=== PATIENT | male | born 1955 | race Hispanic/Latino ===

== ENCOUNTER 2017-05-18 21:09 | Inpatient (IN) | payer MEDICARE ==
[~2017-05-18] VITALS: Ht 157.5 cm; Wt 79.9 kg
[2017-05-18] MEDS ORDERED: PANTOPRAZOL 40MG/SOD CHL 0.9% 250 ML IV STA (21:15)
[2017-05-18] MEDS ORDERED: SODIUM CHLORIDE 0.9% 500ML 500 ML IV STA (21:15)
[2017-05-18] MEDS ORDERED: PANTOPRAZOLE 40 MG 10ML VIAL IV NR (21:30)
[2017-05-18 21:51] LABS: BASOPHILS % 0.5 % (0.0-1.0); BILIRUBIN,URINE NEGATIVE (NEGATIVE); EOSINOPHILS # (AUTO) 0.1 (0.0-0.4); EOSINOPHILS % 1.6 % (0.0-6.0); HEMATOCRIT 29.8 % (38.2-49.6); KETONES,URINE NEGATIVE (NEGATIVE); LEUKOCYTE ESTERASE ,URINE TRACE (NEGATIVE); LYMPHOCYTES # (AUTO) 2.5 (1.0-3.2); LYMPHOCYTES % 44.1 % (18.0-39.1); MEAN CORPUSCULAR HEMOGLOBIN 30.3 pg (28-32); MEAN CORPUSCULAR HGB CONC 33.6 g/dL (31-35); MEAN CORPUSCULAR VOLUME 90.3 fL (81-99); MONOCYTES # (AUTO) 0.3 (0.2-0.8); MONOCYTES % 5.9 % (4.4-11.3); NEUTROPHILS # (AUTO) 2.7 (2.1-6.9); NEUTROPHILS % 47.2 % (38.7-80.0); NITRITE,URINE NEGATIVE (NEGATIVE); PLATELET COUNT 95 x10e3/uL (140-360); PROTEIN,URINE DIPSTICK NEGATIVE (NEGATIVE); RED CELL DISTRIBUTION WIDTH 15.4 % (11.7-14.4); URINE UROBILINOGEN 0.2 mg/dL (0.2 - 1)
[2017-05-18 21:53] LABS: CLARITY,URINE CLEAR (CLEAR); COLOR,URINE YELLOW (YELLOW)
[2017-05-18 21:59] LABS: PARTIAL THROMBOPLASTIN TIME 26.9 seconds (23.8-35.5)
[2017-05-18 22:04] LABS: INR 1.27; PROTHROMBIN TIME 14.9 seconds (11.9-14.5)
[2017-05-18 22:14] LABS: CREATINE KINASE 85 IU/L (30-200)
[2017-05-18 22:18] LABS: ALBUMIN 3.2 g/dL (3.5-5.0)
[2017-05-18 22:27] LABS: ALANINE AMINOTRANSFERASE 84 IU/L (0-55); ALBUMIN/GLOBULIN RATIO 0.9 (0.8-2.0); ALKALINE PHOSPHATASE 50 IU/L (40-150); ANION GAP 15.1 mmol/L (8-16); BLOOD UREA NITROGEN 11 mg/dL (7-26); BUN/CREATININE RATIO 14 (6-25); CALCIUM 8.3 mg/dL (8.4-10.2); CARBON DIOXIDE 17 mmol/L (22-29); CHLORIDE 110 mmol/L (98-107); CREATININE, SERUM 0.79 mg/dL (0.72-1.25); EST GLOMERULAR FILTRATION RATE > 60 ML/MIN (60-); GLUCOSE 153 mg/dL (74-118); LIPASE 50 U/L (8-78); POTASSIUM 4.1 mmol/L (3.5-5.1); SODIUM 138 mmol/L (136-145)
--- NOTE | 2017-05-18 22:30 | Diagnostic Imaging Report ---
CHEST SINGLE (PORTABLE), 05/18/2017 9:15 PM Technique: CHEST SINGLE (PORTABLE) Comparison: None available. Clinical history: vomiting Findings: Limited portable view. Heart/mediastinum: Normal for technique and low volumes. Lungs/pleural spaces: Low lung volumes. No definite consolidation, effusion or pneumothorax. Impression: 1. Lines/Tubes: None 2. No acute abnormality. Signed by: Dr Imelda Green MD on 05/18/2017 10:27 PM
[2017-05-18] MEDS ORDERED: OCTREOTIDE ACETATE 0.05 MG/ML AMP IV STA (23:01)
[2017-05-18] MEDS ORDERED: OCTREOTIDE ACETATE 600 MCG in SODIUM CHLORIDE 0.9% 250ML 300 ML IV SCH (23:01)
[2017-05-18] MEDS ORDERED: PHYTONADIONE 5 MG TAB PO STA (23:48)
[2017-05-19] VITALS (7 sets, daily range): BP systolic 120–138; BP diastolic 54–68
[2017-05-19] MEDS: OCTREOTIDE ACETATE 500 MCG in SODIUM CHLORIDE 0.9% 250ML 249 ML IV SCH ×3 (00:18→22:38)
[2017-05-19] MEDS ORDERED: PHYTONADIONE 10 MG/ML AMP PO STA (00:18)
[2017-05-19] MEDS ORDERED: SODIUM CHLORIDE 0.9% 250ML 250 ML ONE (00:52)
--- OUTSIDE RECORDS SUMMARY | 2017-05-19 00:59 | XMS REPORT ---
Author Author [facility] Address Unknown Phone Unavailable Care Team Providers Care Newspaper Correspondent Name Role Phone ANGEL COSTELLO Unavailable Unavailable Problems This patient has no known problems. Allergies, Adverse Reactions, Alerts This patient has no known allergies or adverse reactions. Medications This patient has no known medications. Results Test Description Test Time Test Comments Text Results Atomic Results Result Comments CHEST SINGLE (PORTABLE) [place] [address] Patient Name: ISABEL COLLADO JR MR #: [id number] : 1955 Age/Sex: 61/M Req #: [id number] Adm Physician: Ordered by: DAWNA DRISCOLL CHILI PEPPER GRINDER Report #: [id number] Location: ER Room/Bed: Procedure: [id number] DX/CHEST SINGLE (PORTABLE) Exam Date: 05/18/17 Exam Time: 2144 REPORT STATUS: Signed CHEST SINGLE ( PORTABLE), 05/18/2017 9:15 PM Technique: CHEST SINGLE (PORTABLE) Comparison: None available. Clinical history: vomiting Findings: Limited portable view. Heart/mediastinum: Normal for technique and low volumes. Lungs/pleural spaces: Low lung volumes. No definite consolidation, effusion or pneumothorax. Impression: 1. Lines/Tubes: None 2. No acute abnormality. Signed by: Dr Constance Green MD on 05/18/2017 10:27 PM Dictated By: CONSTANCE GREEN MD 26 Transcribed By: DANICA on 05/18/172226 COPY TO: DAWNA DRISCOLL NP
[2017-05-19] MEDS: SODIUM CHLORIDE 0.9% 1000ML 1,000 ML IV SCH ×2 (01:27→16:07)
[2017-05-19] MEDS ORDERED: METOPROLOL SUCC50 MG PO (04:57)
[2017-05-19] MEDS ORDERED: VASOTEC10 MG PO (04:57)
[2017-05-19] MEDS ORDERED: METFORMIN HCL500 MG PO (04:57)
[2017-05-19] MEDS ORDERED: ULTRAM 50MG50 MG PO (04:57)
[2017-05-19 06:31] LABS: BASOPHILS % 0.5 % (0.0-1.0); EOSINOPHILS % 1.1 % (0.0-6.0); HEMATOCRIT 23.5 % (38.2-49.6); LYMPHOCYTES % 56.6 % (18.0-39.1); MEAN CORPUSCULAR HEMOGLOBIN 29.8 pg (28-32); MEAN CORPUSCULAR HGB CONC 33.2 g/dL (31-35); MEAN CORPUSCULAR VOLUME 89.7 fL (81-99); MONOCYTES # (AUTO) 0.1 (0.2-0.8); MONOCYTES % 7.1 % (4.4-11.3); NEUTROPHILS # (AUTO) 0.6 (2.1-6.9); NEUTROPHILS % 33.6 % (38.7-80.0); RED BLOOD COUNT 2.62 x10e6/uL (4.3-5.7)
[2017-05-19 06:34] LABS: HEMOGLOBIN 7.8 g/dL (14.0-18.0)
[2017-05-19 06:36] LABS: PLATELET COUNT 55 x10e3/uL (140-360)
[2017-05-19 06:42] LABS: INR 1.34; PROTHROMBIN TIME 15.6 seconds (11.9-14.5)
[2017-05-19 07:03] LABS: ALANINE AMINOTRANSFERASE 60 IU/L (0-55); ALBUMIN 2.8 g/dL (3.5-5.0); ALBUMIN/GLOBULIN RATIO 1.1 (0.8-2.0); ALKALINE PHOSPHATASE 44 IU/L (40-150); ANION GAP 10.6 mmol/L (8-16); BLOOD UREA NITROGEN 9 mg/dL (7-26); BUN/CREATININE RATIO 12 (6-25); CALCIUM 7.9 mg/dL (8.4-10.2); CARBON DIOXIDE 22 mmol/L (22-29); CHLORIDE 112 mmol/L (98-107); CREATININE, SERUM 0.76 mg/dL (0.72-1.25); EST GLOMERULAR FILTRATION RATE > 60 ML/MIN (60-); GLUCOSE 150 mg/dL (74-118); POTASSIUM 3.6 mmol/L (3.5-5.1); SODIUM 141 mmol/L (136-145)
[2017-05-19] MEDS ORDERED: SODIUM CHLORIDE 0.9% 250ML 250 ML IV ONE (07:15)
[2017-05-19 07:45] LABS: ANISOCYTOSIS SLIGHT; HYPOCHROMASIA MODERATE; PLATELET ESTIMATE MODERATELY DECREASED; PLATELET MORPHOLOGY COMMENT FEW LARGE
[2017-05-19 07:46] LABS: RBC MORPHOLOGY COMMENT NORMAL; TEAR DROP CELLS FEW
[2017-05-19] MEDS: PANTOPRAZOLE 40 MG 10ML VIAL IV SCH ×3 (08:25→21:00)
--- NOTE | 2017-05-19 11:33 | Diagnostic Imaging Report ---
PROCEDURE:ABDOMINAL ULTRASOUND COMPARISON:None. INDICATIONS:ALCOHOLIC CIRRHOSIS/ELEVATED BILI./TRANSAMINASES FINDINGS: Liver: 12.5 cm in length. Coarsened, heterogeneous parenchymal echotexture with subtle nodularity of the external contour.. No focal mass. No intrahepatic biliary ductal dilatation. Main portal vein: 1.1 cm in caliber. Hepatopedal flow. Gallbladder: Removed. Common Bile Duct: 0.4 cm in caliber. No echogenic filling defect. Right kidney: 11 cm in length. No solid or cystic mass, echogenic calculi, or hydronephrosis. Normal renal cortical echogenicity. Left kidney: 11.9 cm in length. No solid or cystic mass, echogenic calculi, or hydronephrosis. Normal renal cortical echogenicity. Spleen: Enlarged, measuring 17.7 cm in length. Uniform parenchymal echotexture. Pancreas: The visualized portions of the pancreas are normal. Inferior vena cava: Patent. Aorta: Non-aneurysmal. Ascites: Trace perihepatic and perisplenic ascites.. CONCLUSION: Hepatic cirrhosis with portal hypertension evidenced by splenomegaly and trace perihepatic and perisplenic ascites. Status post cholecystectomy. Dictated by: Mayo Fishman M.D. on 05/19/2017 at 11:33 Electronically approved by: Mayo Fishman M.D. on 05/19/2017 at 11:33
--- NOTE | 2017-05-19 13:25 | Operative Report ---
DATE OF PROCEDURE: May 19, 2017 REFERRING PHYSICIAN: Dr. Ana Cristina Alas. PROCEDURE PERFORMED: Esophagogastroduodenoscopy with banding of esophageal varices. INDICATIONS FOR PROCEDURE: Anemia, cirrhosis of the liver, history of hematemesis, melena. MEDICATION: Patient was done under MAC. Please see anesthesiologist's note. PROCEDURE: With the patient in the left lateral decubitus position, the flexible fiberoptic Olympus gastroscope was introduced into the esophagus under direct visualization without any difficulty. Grade-4 esophageal varices were noted without active bleeding. There were no obvious stigmata of recent hemorrhage. The scope was then advanced with ease into the stomach, and diffuse portal hypertensive gastropathy changes were noted. The pylorus was of normal contour and shape. It was intubated with ease, and the scope was advanced all the way to the 2nd portion of the duodenum. The scope was then withdrawn slowly. Mucosa overlying the proximal 2nd portion and the duodenal bulb appeared to be within normal limits. The scope was then withdrawn back into the stomach and retroflexed. A single varix was noted in the fundus. The scope was then straightened out. The stomach was decompressed. Scope was subsequently withdrawn. It was fitted for banding, and the scope was reintroduced into the esophagus. Five 5 bands were applied to 3 columns of varices. Patient tolerated the procedure well. IMPRESSION 1. Grade-4 esophageal varices without active bleeding. Five bands applied to 3 columns of varices. 2. Single fundal varix without active bleeding or stigmata of recent hemorrhage. 3. Portal hypertensive gastropathy. PLAN: Follow H and H. Continue PPI drip. Continue octreotide drip. Initiate clear liquid diet. Job#: [id number] cc:ANA CRISTINA ALAS MD
[2017-05-19 15:39] LABS: HEMATOCRIT 25.6 % (38.2-49.6); HEMOGLOBIN 8.6 g/dL (14.0-18.0)
[2017-05-19] MEDS ORDERED: PROPOFOL IV EMULSION 10 MG/ML 50 ML VIAL ONE (17:37)
[2017-05-19] MEDS ORDERED: LIDOCAINE HCL 2% LOCAL INJ 5 ML SDV VIAL INJ ONE (17:37)
[2017-05-19] MEDS ORDERED: FENTANYL CITRATE/PF 100MCG/2 ML INJ ONE (18:06)
[2017-05-19] MEDS ORDERED: MIDAZOLAM HCL 2 MG/2 ML VIAL ONE (18:06)
[2017-05-19 18:40] LABS: BASOPHILS % 0.6 % (0.0-1.0); EOSINOPHILS % 1.1 % (0.0-6.0); HEMATOCRIT 25.8 % (38.2-49.6); HEMOGLOBIN 8.5 g/dL (14.0-18.0); LYMPHOCYTES # (AUTO) 0.9 (1.0-3.2); LYMPHOCYTES % 48.9 % (18.0-39.1); MEAN CORPUSCULAR HEMOGLOBIN 29.7 pg (28-32); MEAN CORPUSCULAR HGB CONC 32.9 g/dL (31-35); MEAN CORPUSCULAR VOLUME 90.2 fL (81-99); MONOCYTES # (AUTO) 0.2 (0.2-0.8); MONOCYTES % 8.3 % (4.4-11.3); NEUTROPHILS # (AUTO) 0.7 (2.1-6.9); PLATELET COUNT 76 x10e3/uL (140-360); RED BLOOD COUNT 2.86 x10e6/uL (4.3-5.7)
[2017-05-19] MEDS ORDERED: OCTREOTIDE ACETATE 0 ML ONE (20:29)
[2017-05-20] VITALS (8 sets, daily range): BP systolic 105–130; BP diastolic 42–70
[2017-05-20 00:10] LABS: BASOPHILS % 0.5 % (0.0-1.0); EOSINOPHILS % 1.1 % (0.0-6.0); HEMATOCRIT 23.8 % (38.2-49.6); HEMOGLOBIN 8.1 g/dL (14.0-18.0); LYMPHOCYTES % 54.7 % (18.0-39.1); MEAN CORPUSCULAR HEMOGLOBIN 30.5 pg (28-32); MEAN CORPUSCULAR VOLUME 89.5 fL (81-99); MONOCYTES # (AUTO) 0.1 (0.2-0.8); MONOCYTES % 5.8 % (4.4-11.3); NEUTROPHILS # (AUTO) 0.7 (2.1-6.9); NEUTROPHILS % 37.4 % (38.7-80.0); PLATELET COUNT 83 x10e3/uL (140-360); RED BLOOD COUNT 2.66 x10e6/uL (4.3-5.7)
[2017-05-20] MEDS: SODIUM CHLORIDE 0.9% 1000ML 1,000 ML IV SCH ×2 (02:41→06:23)
[2017-05-20 06:18] LABS: BASOPHILS % 0.5 % (0.0-1.0); HEMATOCRIT 24.4 % (38.2-49.6); LYMPHOCYTES % 52.1 % (18.0-39.1); MEAN CORPUSCULAR HEMOGLOBIN 29.7 pg (28-32); MEAN CORPUSCULAR HGB CONC 32.8 g/dL (31-35); MEAN CORPUSCULAR VOLUME 90.7 fL (81-99); MONOCYTES # (AUTO) 0.1 (0.2-0.8); MONOCYTES % 6.8 % (4.4-11.3); NEUTROPHILS # (AUTO) 0.7 (2.1-6.9); NEUTROPHILS % 38.6 % (38.7-80.0); RED BLOOD COUNT 2.69 x10e6/uL (4.3-5.7); RED CELL DISTRIBUTION WIDTH 15.2 % (11.7-14.4)
[2017-05-20 06:32] LABS: PLATELET COUNT 80 x10e3/uL (140-360)
[2017-05-20 08:08] LABS: EOSINOPHILS % (MANUAL) 3 % (0-7); LYMPHOCYTES % (MANUAL) 43 % (19-48); MONOCYTES % (MANUAL) 5 % (3.4-9.0); NEUTROPHILS % (MANUAL) 49 % (40-74)
[2017-05-20 08:09] LABS: ANISOCYTOSIS SLIGHT; HYPOCHROMASIA MODERATE; PLATELET ESTIMATE SLIGHTLY DECREASED; PLATELET MORPHOLOGY COMMENT FEW LARGE; RBC MORPHOLOGY COMMENT NORMAL
[2017-05-20] MEDS: OCTREOTIDE ACETATE 500 MCG in SODIUM CHLORIDE 0.9% 250ML 249 ML IV SCH ×2 (08:25→14:15)
[2017-05-20 12:11] LABS: BASOPHILS % 0.6 % (0.0-1.0); EOSINOPHILS % 1.1 % (0.0-6.0); LYMPHOCYTES # (AUTO) 0.9 (1.0-3.2); MEAN CORPUSCULAR HEMOGLOBIN 30.4 pg (28-32); MEAN CORPUSCULAR HGB CONC 34.6 g/dL (31-35); MONOCYTES # (AUTO) 0.1 (0.2-0.8); MONOCYTES % 6.1 % (4.4-11.3); NEUTROPHILS # (AUTO) 0.8 (2.1-6.9); NEUTROPHILS % 44.6 % (38.7-80.0); PLATELET COUNT 85 x10e3/uL (140-360); RED CELL DISTRIBUTION WIDTH 15.2 % (11.7-14.4)
[2017-05-20 12:26] LABS: HEMATOCRIT 22.8 % (38.2-49.6); HEMOGLOBIN 7.9 g/dL (14.0-18.0); MEAN CORPUSCULAR VOLUME 87.7 fL (81-99)
[2017-05-20 13:27] LABS: EOSINOPHILS % (MANUAL) 1 % (0-7); LYMPHOCYTES % (MANUAL) 44 % (19-48); MONOCYTES % (MANUAL) 9 % (3.4-9.0); NEUTROPHILS % (MANUAL) 46 % (40-74)
[2017-05-20 13:28] LABS: ANISOCYTOSIS SLIGHT; HYPOCHROMASIA MODERATE; PLATELET ESTIMATE MODERATELY DECREASED; PLATELET MORPHOLOGY COMMENT FEW LARGE; RBC MORPHOLOGY COMMENT NORMAL
[2017-05-20] MEDS ORDERED: SODIUM CHLORIDE 0.9% 250ML 250 ML ONE (15:02)
[2017-05-20] MEDS: METOPROLOL SUCCINATE 50 MG TAB XL PO SCH (16:39)
[2017-05-20] MEDS: METFORMIN HCL 500 MG TAB PO SCH (16:39)
[2017-05-20] MEDS: PANTOPRAZOLE 40 MG 10ML VIAL IV SCH (21:14)
[2017-05-20 21:25] LABS: BASOPHILS % 0.4 % (0.0-1.0); EOSINOPHILS % 1.1 % (0.0-6.0); HEMATOCRIT 31.2 % (38.2-49.6); HEMOGLOBIN 10.4 g/dL (14.0-18.0); LYMPHOCYTES # (AUTO) 1.3 (1.0-3.2); LYMPHOCYTES % 48.1 % (18.0-39.1); MEAN CORPUSCULAR HEMOGLOBIN 29.1 pg (28-32); MEAN CORPUSCULAR HGB CONC 33.3 g/dL (31-35); MEAN CORPUSCULAR VOLUME 87.4 fL (81-99); MONOCYTES # (AUTO) 0.2 (0.2-0.8); MONOCYTES % 7.1 % (4.4-11.3); NEUTROPHILS # (AUTO) 1.2 (2.1-6.9); NEUTROPHILS % 42.9 % (38.7-80.0); PLATELET COUNT 88 x10e3/uL (140-360); RED BLOOD COUNT 3.57 x10e6/uL (4.3-5.7); RED CELL DISTRIBUTION WIDTH 15.5 % (11.7-14.4)
[2017-05-21] VITALS (7 sets, daily range): BP systolic 106–143; BP diastolic 43–67
[2017-05-21 03:19] LABS: BASOPHILS % 0.4 % (0.0-1.0); EOSINOPHILS % 1.1 % (0.0-6.0); HEMATOCRIT 28.6 % (38.2-49.6); HEMOGLOBIN 9.7 g/dL (14.0-18.0); MEAN CORPUSCULAR HEMOGLOBIN 29.1 pg (28-32); MEAN CORPUSCULAR HGB CONC 33.9 g/dL (31-35); MEAN CORPUSCULAR VOLUME 85.9 fL (81-99); MONOCYTES # (AUTO) 0.2 (0.2-0.8); MONOCYTES % 7.6 % (4.4-11.3); NEUTROPHILS # (AUTO) 1.4 (2.1-6.9); NEUTROPHILS % 51.1 % (38.7-80.0); PLATELET COUNT 77 x10e3/uL (140-360); RED BLOOD COUNT 3.33 x10e6/uL (4.3-5.7); RED CELL DISTRIBUTION WIDTH 15.7 % (11.7-14.4)
[2017-05-21] MEDS: OCTREOTIDE ACETATE 500 MCG in SODIUM CHLORIDE 0.9% 250ML 249 ML IV SCH ×3 (03:35→14:48)
[2017-05-21] MEDS: PANTOPRAZOLE 40 MG 10ML VIAL IV SCH ×2 (09:06→20:45)
[2017-05-21] MEDS: ENALAPRIL MALEATE 10 MG TAB PO SCH (09:06)
[2017-05-21] MEDS: METFORMIN HCL 500 MG TAB PO SCH ×2 (09:06→17:26)
[2017-05-21] MEDS: METOPROLOL SUCCINATE 50 MG TAB XL PO SCH ×2 (09:06→17:26)
[2017-05-21 12:41] LABS: BASOPHILS % 0.5 % (0.0-1.0); EOSINOPHILS % 1.4 % (0.0-6.0); HEMATOCRIT 28.6 % (38.2-49.6); HEMOGLOBIN 9.8 g/dL (14.0-18.0); LYMPHOCYTES # (AUTO) 0.9 (1.0-3.2); LYMPHOCYTES % 38.7 % (18.0-39.1); MEAN CORPUSCULAR HEMOGLOBIN 30.1 pg (28-32); MEAN CORPUSCULAR HGB CONC 34.3 g/dL (31-35); MEAN CORPUSCULAR VOLUME 87.7 fL (81-99); MONOCYTES # (AUTO) 0.2 (0.2-0.8); MONOCYTES % 8.1 % (4.4-11.3); NEUTROPHILS # (AUTO) 1.1 (2.1-6.9); NEUTROPHILS % 50.8 % (38.7-80.0); PLATELET COUNT 79 x10e3/uL (140-360); RED BLOOD COUNT 3.26 x10e6/uL (4.3-5.7); RED CELL DISTRIBUTION WIDTH 15.8 % (11.7-14.4)
[2017-05-21 21:46] LABS: BASOPHILS % 0.4 % (0.0-1.0); EOSINOPHILS % 1.2 % (0.0-6.0); HEMATOCRIT 28.1 % (38.2-49.6); HEMOGLOBIN 9.6 g/dL (14.0-18.0); LYMPHOCYTES # (AUTO) 1.1 (1.0-3.2); LYMPHOCYTES % 44.8 % (18.0-39.1); MEAN CORPUSCULAR HEMOGLOBIN 29.4 pg (28-32); MEAN CORPUSCULAR HGB CONC 34.2 g/dL (31-35); MEAN CORPUSCULAR VOLUME 85.9 fL (81-99); MONOCYTES # (AUTO) 0.2 (0.2-0.8); MONOCYTES % 7.9 % (4.4-11.3); NEUTROPHILS # (AUTO) 1.1 (2.1-6.9); NEUTROPHILS % 45.3 % (38.7-80.0); PLATELET COUNT 72 x10e3/uL (140-360); RED BLOOD COUNT 3.27 x10e6/uL (4.3-5.7); RED CELL DISTRIBUTION WIDTH 15.7 % (11.7-14.4)
[2017-05-22] VITALS (7 sets, daily range): BP systolic 110–141; BP diastolic 53–66
[2017-05-22] MEDS: OCTREOTIDE ACETATE 500 MCG in SODIUM CHLORIDE 0.9% 250ML 249 ML IV SCH ×4 (01:34→23:00)
[2017-05-22 07:19] LABS: BASOPHILS % 0.4 % (0.0-1.0); EOSINOPHILS # (AUTO) 0.1 (0.0-0.4); HEMATOCRIT 30.8 % (38.2-49.6); HEMOGLOBIN 10.3 g/dL (14.0-18.0); LYMPHOCYTES # (AUTO) 0.9 (1.0-3.2); LYMPHOCYTES % 35.6 % (18.0-39.1); MEAN CORPUSCULAR HEMOGLOBIN 29.7 pg (28-32); MEAN CORPUSCULAR HGB CONC 33.4 g/dL (31-35); MEAN CORPUSCULAR VOLUME 88.8 fL (81-99); MONOCYTES # (AUTO) 0.2 (0.2-0.8); MONOCYTES % 8.3 % (4.4-11.3); NEUTROPHILS # (AUTO) 1.3 (2.1-6.9); NEUTROPHILS % 52.9 % (38.7-80.0); PLATELET COUNT 76 x10e3/uL (140-360); RED BLOOD COUNT 3.47 x10e6/uL (4.3-5.7); RED CELL DISTRIBUTION WIDTH 15.8 % (11.7-14.4)
[2017-05-22] MEDS: METOPROLOL SUCCINATE 50 MG TAB XL PO SCH ×2 (09:00→15:47)
[2017-05-22] MEDS: ENALAPRIL MALEATE 10 MG TAB PO SCH (09:00)
[2017-05-22] MEDS: PANTOPRAZOLE 40 MG 10ML VIAL IV SCH ×2 (09:44→21:19)
[2017-05-22] MEDS: METFORMIN HCL 500 MG TAB PO SCH ×2 (09:44→17:16)
[2017-05-22 12:19] LABS: BASOPHILS % 0.4 % (0.0-1.0); EOSINOPHILS % 1.3 % (0.0-6.0); HEMATOCRIT 29.6 % (38.2-49.6); LYMPHOCYTES # (AUTO) 0.9 (1.0-3.2); MEAN CORPUSCULAR HEMOGLOBIN 29.5 pg (28-32); MEAN CORPUSCULAR HGB CONC 33.8 g/dL (31-35); MEAN CORPUSCULAR VOLUME 87.3 fL (81-99); MONOCYTES # (AUTO) 0.2 (0.2-0.8); MONOCYTES % 8.1 % (4.4-11.3); NEUTROPHILS # (AUTO) 1.1 (2.1-6.9); NEUTROPHILS % 50.8 % (38.7-80.0); PLATELET COUNT 72 x10e3/uL (140-360); RED BLOOD COUNT 3.39 x10e6/uL (4.3-5.7); RED CELL DISTRIBUTION WIDTH 15.7 % (11.7-14.4)
[2017-05-22 18:15] LABS: BASOPHILS % 0.3 % (0.0-1.0); EOSINOPHILS # (AUTO) 0.1 (0.0-0.4); EOSINOPHILS % 1.6 % (0.0-6.0); HEMATOCRIT 32.2 % (38.2-49.6); LYMPHOCYTES # (AUTO) 1.1 (1.0-3.2); LYMPHOCYTES % 34.5 % (18.0-39.1); MEAN CORPUSCULAR HEMOGLOBIN 29.7 pg (28-32); MEAN CORPUSCULAR HGB CONC 34.2 g/dL (31-35); MONOCYTES # (AUTO) 0.2 (0.2-0.8); MONOCYTES % 7.5 % (4.4-11.3); NEUTROPHILS # (AUTO) 1.8 (2.1-6.9); NEUTROPHILS % 55.5 % (38.7-80.0); PLATELET COUNT 85 x10e3/uL (140-360); RED CELL DISTRIBUTION WIDTH 15.7 % (11.7-14.4)
[2017-05-23] VITALS (7 sets, daily range): BP systolic 109–152; BP diastolic 52–67
[2017-05-23] MEDS: MORPHINE SULFATE 2 MG/ML SYR IV PRN ×2 (05:54→12:04)
[2017-05-23] MEDS: ONDANSETRON HCL INJ 2 MG/ML VIAL IV PRN ×2 (05:54→12:04)
[2017-05-23 07:42] LABS: BASOPHILS % 0.4 % (0.0-1.0); EOSINOPHILS % 1.3 % (0.0-6.0); HEMATOCRIT 30.1 % (38.2-49.6); LYMPHOCYTES # (AUTO) 0.8 (1.0-3.2); LYMPHOCYTES % 35.4 % (18.0-39.1); MEAN CORPUSCULAR HEMOGLOBIN 29.2 pg (28-32); MEAN CORPUSCULAR HGB CONC 33.2 g/dL (31-35); MEAN CORPUSCULAR VOLUME 87.8 fL (81-99); MONOCYTES # (AUTO) 0.2 (0.2-0.8); MONOCYTES % 8.4 % (4.4-11.3); NEUTROPHILS # (AUTO) 1.3 (2.1-6.9); NEUTROPHILS % 54.1 % (38.7-80.0); PLATELET COUNT 71 x10e3/uL (140-360); RED BLOOD COUNT 3.43 x10e6/uL (4.3-5.7); RED CELL DISTRIBUTION WIDTH 15.6 % (11.7-14.4)
--- NOTE | 2017-05-23 07:54 | Diagnostic Imaging Report ---
EXAM: ABDOMEN ACUTE SERIES W/PA CXR, DATE: 05/23/2017 6:00 AM INDICATION: Cirrhosis. The GI bleed. Abdominal pain. COMPARISON: None FINDINGS: LINES/TUBES: None BOWEL PATTERN: No evidence for obstruction. SOFT TISSUES: No abnormal calcifications. No mass effect. Tiny metallic density projected on the right upper quadrant. LUNG BASES: Not included BONES: No acute findings. IMPRESSION: Nonobstructive bowel gas pattern. Signed by: Dr. Barrington Del Rio M.D. on 05/23/2017 7:51 AM
[2017-05-23] MEDS: METFORMIN HCL 500 MG TAB PO SCH ×2 (08:00→17:15)
[2017-05-23 08:07] LABS: ANION GAP 11.3 mmol/L (8-16); BLOOD UREA NITROGEN 8 mg/dL (7-26); BUN/CREATININE RATIO 10 (6-25); CALCIUM 7.8 mg/dL (8.4-10.2); CARBON DIOXIDE 21 mmol/L (22-29); CHLORIDE 109 mmol/L (98-107); CREATININE, SERUM 0.79 mg/dL (0.72-1.25); EST GLOMERULAR FILTRATION RATE > 60 ML/MIN (60-); GLUCOSE 128 mg/dL (74-118); POTASSIUM 3.3 mmol/L (3.5-5.1); SODIUM 138 mmol/L (136-145)
[2017-05-23] MEDS: METOPROLOL SUCCINATE 50 MG TAB XL PO SCH ×2 (09:21→17:15)
[2017-05-23] MEDS: PANTOPRAZOLE 40 MG 10ML VIAL IV SCH ×2 (09:21→20:45)
[2017-05-23] MEDS: ENALAPRIL MALEATE 10 MG TAB PO SCH (09:21)
[2017-05-23] MEDS ORDERED: POTASSIUM CHLORIDE 10 MEQ TABCR PO ONE (09:45)
[2017-05-23] MEDS ORDERED: POTASSIUM CHLORIDE 20 MEQ TAB CR PO ONE (10:00)
[2017-05-23] MEDS: OCTREOTIDE ACETATE 500 MCG in SODIUM CHLORIDE 0.9% 250ML 249 ML IV SCH ×2 (11:02→23:30)
[2017-05-24] VITALS (7 sets, daily range): BP systolic 102–131; BP diastolic 50–62
[2017-05-24] MEDS: OCTREOTIDE ACETATE 500 MCG in SODIUM CHLORIDE 0.9% 250ML 249 ML IV SCH (02:07)
[2017-05-24 07:14] LABS: BASOPHILS % 0.9 % (0.0-1.0); EOSINOPHILS % 1.4 % (0.0-6.0); HEMATOCRIT 28.6 % (38.2-49.6); HEMOGLOBIN 9.6 g/dL (14.0-18.0); LYMPHOCYTES # (AUTO) 0.9 (1.0-3.2); MEAN CORPUSCULAR HEMOGLOBIN 29.4 pg (28-32); MEAN CORPUSCULAR HGB CONC 33.6 g/dL (31-35); MEAN CORPUSCULAR VOLUME 87.5 fL (81-99); MONOCYTES # (AUTO) 0.2 (0.2-0.8); MONOCYTES % 10.5 % (4.4-11.3); NEUTROPHILS % 43.8 % (38.7-80.0); PLATELET COUNT 62 x10e3/uL (140-360); RED BLOOD COUNT 3.27 x10e6/uL (4.3-5.7); RED CELL DISTRIBUTION WIDTH 15.2 % (11.7-14.4)
[2017-05-24 07:52] LABS: ANION GAP 10.4 mmol/L (8-16); BLOOD UREA NITROGEN 9 mg/dL (7-26); BUN/CREATININE RATIO 11 (6-25); CALCIUM 7.7 mg/dL (8.4-10.2); CARBON DIOXIDE 22 mmol/L (22-29); CHLORIDE 106 mmol/L (98-107); EST GLOMERULAR FILTRATION RATE > 60 ML/MIN (60-); GLUCOSE 127 mg/dL (74-118); POTASSIUM 3.4 mmol/L (3.5-5.1); SODIUM 135 mmol/L (136-145)
[2017-05-24] MEDS: ENALAPRIL MALEATE 10 MG TAB PO SCH (08:19)
[2017-05-24] MEDS: METFORMIN HCL 500 MG TAB PO SCH ×2 (08:19→17:09)
[2017-05-24] MEDS: PANTOPRAZOLE 40 MG 10ML VIAL IV SCH ×2 (08:19→20:16)
[2017-05-24] MEDS: METOPROLOL SUCCINATE 50 MG TAB XL PO SCH ×2 (08:19→17:09)
[2017-05-24] MEDS ORDERED: POTASSIUM CHLORIDE 10 MEQ TABCR PO ONE (10:45)
[2017-05-24] MEDS: LOPERAMIDE HCL 2 MG CAP PO PRN (18:53)
[2017-05-25] VITALS: BP 123/58
[2017-05-25 04:00] VITALS: BP 126/58
[2017-05-25 06:43] LABS: BASOPHILS % 0.5 % (0.0-1.0); EOSINOPHILS % 1.9 % (0.0-6.0); HEMATOCRIT 29.9 % (38.2-49.6); LYMPHOCYTES # (AUTO) 0.9 (1.0-3.2); LYMPHOCYTES % 40.5 % (18.0-39.1); MEAN CORPUSCULAR HEMOGLOBIN 29.4 pg (28-32); MEAN CORPUSCULAR HGB CONC 33.4 g/dL (31-35); MEAN CORPUSCULAR VOLUME 87.9 fL (81-99); MONOCYTES # (AUTO) 0.2 (0.2-0.8); MONOCYTES % 7.4 % (4.4-11.3); NEUTROPHILS # (AUTO) 1.1 (2.1-6.9); NEUTROPHILS % 49.7 % (38.7-80.0); PLATELET COUNT 69 x10e3/uL (140-360); RED CELL DISTRIBUTION WIDTH 15.3 % (11.7-14.4)
[2017-05-25 07:07] LABS: ANION GAP 13.7 mmol/L (8-16); BLOOD UREA NITROGEN 8 mg/dL (7-26); BUN/CREATININE RATIO 9 (6-25); CALCIUM 8.6 mg/dL (8.4-10.2); CARBON DIOXIDE 21 mmol/L (22-29); CHLORIDE 109 mmol/L (98-107); CREATININE, SERUM 0.85 mg/dL (0.72-1.25); EST GLOMERULAR FILTRATION RATE > 60 ML/MIN (60-); GLUCOSE 121 mg/dL (74-118); POTASSIUM 3.7 mmol/L (3.5-5.1); SODIUM 140 mmol/L (136-145)
[2017-05-25 07:49] VITALS: BP 144/65
[2017-05-25] MEDS: PANTOPRAZOLE 40 MG 10ML VIAL IV SCH (09:08)
[2017-05-25] MEDS: METOPROLOL SUCCINATE 50 MG TAB XL PO SCH (09:08)
[2017-05-25] MEDS: METFORMIN HCL 500 MG TAB PO SCH (09:08)
[2017-05-25] MEDS: ENALAPRIL MALEATE 10 MG TAB PO SCH (09:09)
[2017-05-25] MEDS: LOPERAMIDE HCL 2 MG CAP PO PRN (09:10)
[2017-05-25 10:28] VITALS: BP 144/65
[2017-05-25 11:58] VITALS: BP 124/58
== END 2017-05-25 12:55 | disposition home or self-care (01) | DRG 432 ==
LOC: ER 21:09 → ERHOLD 05-19 00:57 → EDBEDREQSVC 05-19 01:20 → IMCU 05-19 01:21 → MED/SURG 05-21 14:58
PROC: 0DJ08ZZ Inspection of Upper Intestinal Tract, Via Natural or Artificial Opening Endoscopic (ICD-10-PCS; 2017-05-19)
PROC: 30233N1 Transfusion of Nonautologous Red Blood Cells into Peripheral Vein, Percutaneous Approach (ICD-10-PCS; 2017-05-19)
PROC: 30233R1 Transfusion of Nonautologous Platelets into Peripheral Vein, Percutaneous Approach (ICD-10-PCS; 2017-05-19)
PROC: 30233K1 Transfusion of Nonautologous Frozen Plasma into Peripheral Vein, Percutaneous Approach (ICD-10-PCS; 2017-05-19)
PROC: 06L34CZ Occlusion of Esophageal Vein with Extraluminal Device, Percutaneous Endoscopic Approach (ICD-10-PCS; principal; 2017-05-19 12:00)
DX: K70.30 Alcoholic cirrhosis of liver without ascites (principal); I85.11 Secondary esophageal varices with bleeding; D61.818 Other pancytopenia; K76.6 Portal hypertension; D62 Acute posthemorrhagic anemia; K75.9 Inflammatory liver disease, unspecified; K31.89 Other diseases of stomach and duodenum; F10.20 Alcohol dependence, uncomplicated
CPT/HCPCS: 36415; 36430; 43235; 71045; 74022; 76700; 80048; 80053; 80329; 81001; 82140; 82270; 82550; 82553; 82948; 83605; 83690; 83735; 83880; 84484; 85014; 85018; 85025; 85610; 85730; 86039; 86255; 86850; 86900; 86920; 87086; 87493; 93005; 99284; J2001; J2250; J2270; J2353; J2405; J3430; J7030; J7040; J7050; P9016; P9017; P9034

== ENCOUNTER 2020-01-26 21:57 | Inpatient (IN) | payer MEDICARE ==
[~2020-01-26] VITALS: Ht 157.5 cm; Wt 78.9 kg
[~2020-01-26 21:57] MED LIST: METFORMIN HCL500 MG PO; METOPROLOL SUCC50 MG PO; ULTRAM 50MG50 MG PO; VASOTEC10 MG PO
[2020-01-26] MEDS ORDERED: SODIUM CHLORIDE 0.9% 500ML 500 ML IV STA (22:23)
[2020-01-26 22:39] LABS: BASOPHILS % 0.8 % (0.0-1.0); EOSINOPHILS # (AUTO) 0.1 (0.0-0.4); EOSINOPHILS % 1.5 % (0.0-6.0); HEMATOCRIT 46.2 % (38.2-49.6); HEMOGLOBIN 15.2 g/dL (14.0-18.0); LYMPHOCYTES # (AUTO) 1.4 (1.0-3.2); LYMPHOCYTES % 29.8 % (18.0-39.1); MEAN CORPUSCULAR HEMOGLOBIN 28.5 pg (28-32); MEAN CORPUSCULAR HGB CONC 32.9 g/dL (31-35); MEAN CORPUSCULAR VOLUME 86.7 fL (81-99); MONOCYTES # (AUTO) 0.5 (0.2-0.8); MONOCYTES % 9.6 % (4.4-11.3); NEUTROPHILS # (AUTO) 2.8 (2.1-6.9); NEUTROPHILS % 57.7 % (38.7-80.0); PLATELET COUNT 81 x10e3/uL (140-360); RED BLOOD COUNT 5.33 x10e6/uL (4.3-5.7); RED CELL DISTRIBUTION WIDTH 15.9 % (11.7-14.4)
[2020-01-26 22:47] LABS: INR 1.06; PROTHROMBIN TIME 14.3 seconds (11.9-14.5)
[2020-01-26 22:53] LABS: BILIRUBIN,URINE NEGATIVE (NEGATIVE); CLARITY,URINE CLEAR (CLEAR); COLOR,URINE YELLOW (YELLOW); KETONES,URINE TRACE (NEGATIVE); LEUKOCYTE ESTERASE ,URINE NEGATIVE (NEGATIVE); NITRITE,URINE NEGATIVE (NEGATIVE); PROTEIN,URINE DIPSTICK NEGATIVE (NEGATIVE); URINE UROBILINOGEN 0.2 mg/dL (0.2 - 1)
[2020-01-26 22:57] LABS: ALANINE AMINOTRANSFERASE 48 IU/L (0-55); ALBUMIN 4.3 g/dL (3.5-5.0); ALBUMIN/GLOBULIN RATIO 1.1 (0.8-2.0); ALKALINE PHOSPHATASE 67 IU/L (40-150); ANION GAP 15.3 mmol/L (8-16); BLOOD UREA NITROGEN 21 mg/dL (7-26); BUN/CREATININE RATIO 20 (6-25); CALCIUM 9.5 mg/dL (8.4-10.2); CARBON DIOXIDE 20 mmol/L (22-29); CHLORIDE 106 mmol/L (98-107); CREATININE, SERUM 1.04 mg/dL (0.72-1.25); EST GLOMERULAR FILTRATION RATE > 60 ML/MIN (60-); GLUCOSE 120 mg/dL (74-118); POTASSIUM 4.3 mmol/L (3.5-5.1); SODIUM 137 mmol/L (136-145)
[2020-01-26 23:01] LABS: BACTERIA,URINE RARE /HPF; EPITHELIAL CELLS,URINE RARE /LPF; RBC,URINE 0-5 /HPF (0-5); WBC,URINE (MAN) 0-5 /HPF (0-5)
[2020-01-27] VITALS (8 sets, daily range): BP systolic 113–141; BP diastolic 52–66
[2020-01-27] MEDS ORDERED: ENOXAPARIN SOD INJ 40 MG/0.4 ML SYR SC STA (00:51)
[2020-01-27] MEDS ORDERED: ENOXAPARIN SOD INJ 40 MG/0.4 ML SYR SC ONE (01:08)
[2020-01-27] MEDS ORDERED: FAMOTIDINE20 MG PO (07:17)
[2020-01-27] MEDS ORDERED: PRENATAL VITAM1 EACH PO (07:18)
[2020-01-27] MEDS ORDERED: SEGLUROMET 7.51 EAC1 PO (07:22)
[2020-01-27] MEDS ORDERED: DEXTROSE 50% SYRINGE 50 ML IV PRN (10:00)
[2020-01-27] MEDS: INSULIN LISPRO 100 UNIT/1 ML 3ML VIAL SQ SCH ×3 (12:19→21:05)
[2020-01-27] MEDS: CELECOXIB 100 MG CAP PO PRN (12:20)
[2020-01-27] MEDS: METOPROLOL SUCCINATE 50 MG TAB XL PO SCH (17:25)
[2020-01-27] MEDS: FAMOTIDINE 20 MG TAB PO SCH (17:25)
[2020-01-27] MEDS: ENALAPRIL MALEATE 10 MG TAB PO SCH (17:28)
[2020-01-28] VITALS (7 sets, daily range): BP systolic 111–131; BP diastolic 57–77
[2020-01-28 06:08] LABS: BASOPHILS % 0.7 % (0.0-1.0); EOSINOPHILS # (AUTO) 0.1 (0.0-0.4); EOSINOPHILS % 1.8 % (0.0-6.0); HEMATOCRIT 43.9 % (38.2-49.6); HEMOGLOBIN 14.5 g/dL (14.0-18.0); LYMPHOCYTES % 35.4 % (18.0-39.1); MEAN CORPUSCULAR HEMOGLOBIN 29.6 pg (28-32); MEAN CORPUSCULAR VOLUME 89.6 fL (81-99); MONOCYTES # (AUTO) 0.3 (0.2-0.8); MONOCYTES % 9.1 % (4.4-11.3); NEUTROPHILS # (AUTO) 1.5 (2.1-6.9); NEUTROPHILS % 52.3 % (38.7-80.0); PLATELET COUNT 70 x10e3/uL (140-360); RED CELL DISTRIBUTION WIDTH 15.9 % (11.7-14.4)
[2020-01-28] MEDS: CELECOXIB 100 MG CAP PO PRN (06:24)
[2020-01-28 06:59] LABS: ANION GAP 12.3 mmol/L (8-16); BLOOD UREA NITROGEN 22 mg/dL (7-26); BUN/CREATININE RATIO 22 (6-25); CARBON DIOXIDE 22 mmol/L (22-29); CHLORIDE 107 mmol/L (98-107); CREATININE, SERUM 0.99 mg/dL (0.72-1.25); EST GLOMERULAR FILTRATION RATE > 60 ML/MIN (60-); GLUCOSE 138 mg/dL (74-118); POTASSIUM 4.3 mmol/L (3.5-5.1); SODIUM 137 mmol/L (136-145)
[2020-01-28] MEDS: INSULIN LISPRO 100 UNIT/1 ML 3ML VIAL SQ SCH ×4 (07:30→21:20)
[2020-01-28] MEDS: FAMOTIDINE 20 MG TAB PO SCH ×2 (08:45→16:45)
[2020-01-28] MEDS: METOPROLOL SUCCINATE 50 MG TAB XL PO SCH ×2 (08:47→16:37)
[2020-01-28] MEDS: ENALAPRIL MALEATE 10 MG TAB PO SCH ×2 (08:47→16:37)
[2020-01-28] MEDS: PRENATAL VITS W CA FE FA PO SCH (08:48)
[2020-01-28] MEDS ORDERED: WARFARIN SOD 3 MG TAB PO ONE (10:30)
[2020-01-28] MEDS: ENOXAPARIN SOD INJ 40 MG/0.4 ML SYR SC SCH (16:45)
[2020-01-29] VITALS (8 sets, daily range): BP systolic 108–137; BP diastolic 51–66
[2020-01-29 05:39] LABS: INR 1.13; PROTHROMBIN TIME 15.1 seconds (11.9-14.5)
[2020-01-29] MEDS: FAMOTIDINE 20 MG TAB PO SCH ×2 (08:22→16:37)
[2020-01-29] MEDS: METOPROLOL SUCCINATE 50 MG TAB XL PO SCH ×2 (08:23→16:38)
[2020-01-29] MEDS: ENALAPRIL MALEATE 10 MG TAB PO SCH ×2 (08:23→16:39)
[2020-01-29] MEDS: CELECOXIB 100 MG CAP PO PRN (08:26)
[2020-01-29] MEDS: PRENATAL VITS W CA FE FA PO SCH (09:00)
[2020-01-29] MEDS ORDERED: WARFARIN SOD 5 MG TAB PO ONE (09:10)
[2020-01-29] MEDS: INSULIN LISPRO 100 UNIT/1 ML 3ML VIAL SQ SCH ×4 (09:18→20:30)
[2020-01-29] MEDS: ENOXAPARIN SOD INJ 40 MG/0.4 ML SYR SC SCH (16:39)
[2020-01-30] VITALS (11 sets, daily range): BP systolic 108–150; BP diastolic 55–72
[2020-01-30 05:12] LABS: INR 1.3; PROTHROMBIN TIME 16.8 seconds (11.9-14.5)
[2020-01-30] MEDS: FAMOTIDINE 20 MG TAB PO SCH ×2 (08:24→17:17)
[2020-01-30] MEDS: METOPROLOL SUCCINATE 50 MG TAB XL PO SCH ×2 (08:25→17:17)
[2020-01-30] MEDS: ENALAPRIL MALEATE 10 MG TAB PO SCH ×2 (08:25→17:18)
[2020-01-30] MEDS: CELECOXIB 100 MG CAP PO PRN (08:28)
[2020-01-30] MEDS ORDERED: WARFARIN SOD 5 MG TAB PO ONE (08:30)
[2020-01-30] MEDS: PRENATAL VITS W CA FE FA PO SCH (09:00)
[2020-01-30] MEDS: INSULIN LISPRO 100 UNIT/1 ML 3ML VIAL SQ SCH ×4 (09:09→20:47)
[2020-01-30] MEDS: ENOXAPARIN SOD INJ 40 MG/0.4 ML SYR SC SCH (17:18)
[2020-01-31] VITALS (8 sets, daily range): BP systolic 104–135; BP diastolic 53–65
[2020-01-31 05:05] LABS: EOSINOPHILS # (AUTO) 0.1 (0.0-0.4); EOSINOPHILS % 2.3 % (0.0-6.0); HEMATOCRIT 43.9 % (38.2-49.6); HEMOGLOBIN 14.4 g/dL (14.0-18.0); LYMPHOCYTES # (AUTO) 1.3 (1.0-3.2); LYMPHOCYTES % 41.6 % (18.0-39.1); MEAN CORPUSCULAR HGB CONC 32.8 g/dL (31-35); MEAN CORPUSCULAR VOLUME 88.5 fL (81-99); MONOCYTES # (AUTO) 0.3 (0.2-0.8); MONOCYTES % 10.4 % (4.4-11.3); NEUTROPHILS # (AUTO) 1.4 (2.1-6.9); NEUTROPHILS % 44.4 % (38.7-80.0); PLATELET COUNT 66 x10e3/uL (140-360); RED BLOOD COUNT 4.96 x10e6/uL (4.3-5.7); RED CELL DISTRIBUTION WIDTH 15.4 % (11.7-14.4)
[2020-01-31 05:16] LABS: INR 1.59; PROTHROMBIN TIME 19.7 seconds (11.9-14.5)
[2020-01-31] MEDS: FAMOTIDINE 20 MG TAB PO SCH ×2 (08:44→17:19)
[2020-01-31] MEDS: PRENATAL VITS W CA FE FA PO SCH (08:44)
[2020-01-31] MEDS: ENALAPRIL MALEATE 10 MG TAB PO SCH ×2 (08:44→17:20)
[2020-01-31] MEDS: INSULIN LISPRO 100 UNIT/1 ML 3ML VIAL SQ SCH ×4 (08:47→22:05)
[2020-01-31] MEDS ORDERED: WARFARIN SOD 5 MG TAB PO ONE (09:30)
[2020-01-31] MEDS: METOPROLOL SUCCINATE 50 MG TAB XL PO SCH ×2 (11:00→17:19)
[2020-01-31] MEDS: ENOXAPARIN SOD INJ 40 MG/0.4 ML SYR SC SCH (17:20)
[2020-02-01 00:06] VITALS: BP 113/61
[2020-02-01 05:00] VITALS: BP 124/62
[2020-02-01 05:30] LABS: INR 1.67; PROTHROMBIN TIME 20.5 seconds (11.9-14.5)
[2020-02-01 08:32] VITALS: BP 125/64
[2020-02-01 08:34] VITALS: BP 125/64
[2020-02-01] MEDS: PRENATAL VITS W CA FE FA PO SCH (08:59)
[2020-02-01] MEDS: FAMOTIDINE 20 MG TAB PO SCH ×2 (09:13→09:17)
[2020-02-01] MEDS: METOPROLOL SUCCINATE 50 MG TAB XL PO SCH ×2 (09:13→09:17)
[2020-02-01] MEDS: CELECOXIB 100 MG CAP PO PRN (09:14)
[2020-02-01] MEDS: ENALAPRIL MALEATE 10 MG TAB PO SCH (09:17)
[2020-02-01] MEDS: INSULIN LISPRO 100 UNIT/1 ML 3ML VIAL SQ SCH (09:19)
[2020-02-01] MEDS ORDERED: coumadin PO (10:24)
== END 2020-02-01 11:21 | disposition home or self-care (01) | DRG 442 ==
LOC: ER 22:16 → ERHOLD 01-27 01:57 → MED/SURG 01-27 02:21 → OBSVTOIN 01-27 09:52 → INTOOBSV 01-27 09:52 → MED/SURG 01-28 10:05
PROVIDERS: ADMIT Internal Medicine; ATTEND Internal Medicine
DX: I81 Portal vein thrombosis (principal); K76.6 Portal hypertension; I85.00 Esophageal varices without bleeding; K57.30 Diverticulosis of large intestine without perforation or abscess without bleeding; K20.90 Esophagitis, unspecified without bleeding; K70.30 Alcoholic cirrhosis of liver without ascites; Z88.0 Allergy status to penicillin; Z88.8 Allergy status to other drugs, medicaments and biological substances; Z11.59 Encounter for screening for other viral diseases
CPT/HCPCS: 36415; 74177; 80048; 80053; 81001; 82948; 83880; 84484; 85025; 85610; 96372; 99284; J1650; J7040; U0002

== ENCOUNTER 2020-02-15 22:20 | Emergency (ER) | payer MEDICARE ==
[~2020-02-15] VITALS: Ht 160 cm; Wt 78.9 kg
[~2020-02-15 22:20] MED LIST changes: +FAMOTIDINE20 MG PO; +PRENATAL VITAM1 EACH PO; +SEGLUROMET 7.51 EAC1 PO; +coumadin PO
[2020-02-15 22:49] LABS: BASOPHILS % 0.5 % (0.0-1.0); EOSINOPHILS # (AUTO) 0.1 (0.0-0.4); HEMATOCRIT 45.5 % (38.2-49.6); HEMOGLOBIN 14.9 g/dL (14.0-18.0); LYMPHOCYTES # (AUTO) 1.3 (1.0-3.2); LYMPHOCYTES % 30.7 % (18.0-39.1); MEAN CORPUSCULAR HEMOGLOBIN 28.7 pg (28-32); MEAN CORPUSCULAR HGB CONC 32.7 g/dL (31-35); MEAN CORPUSCULAR VOLUME 87.5 fL (81-99); MONOCYTES # (AUTO) 0.3 (0.2-0.8); MONOCYTES % 7.9 % (4.4-11.3); NEUTROPHILS # (AUTO) 2.4 (2.1-6.9); NEUTROPHILS % 58.7 % (38.7-80.0); PLATELET COUNT 80 x10e3/uL (140-360); RED CELL DISTRIBUTION WIDTH 15.4 % (11.7-14.4)
[2020-02-15 22:59] LABS: INR 2.48
[2020-02-15 23:04] LABS: CLARITY,URINE TURBID (CLEAR); COLOR,URINE BROWN (YELLOW)
[2020-02-15 23:05] LABS: BILIRUBIN,URINE SMALL (NEGATIVE); KETONES,URINE 1+ (NEGATIVE); LEUKOCYTE ESTERASE ,URINE NEGATIVE (NEGATIVE); NITRITE,URINE NEGATIVE (NEGATIVE); PROTEIN,URINE DIPSTICK >=300 (NEGATIVE); URINE UROBILINOGEN 0.2 mg/dL (0.2 - 1)
[2020-02-15 23:08] LABS: ALANINE AMINOTRANSFERASE 36 IU/L (0-55); ALBUMIN 4.3 g/dL (3.5-5.0); ALBUMIN/GLOBULIN RATIO 1.1 (0.8-2.0); ALKALINE PHOSPHATASE 64 IU/L (40-150); ANION GAP 15.3 mmol/L (8-16); BLOOD UREA NITROGEN 23 mg/dL (7-26); BUN/CREATININE RATIO 26 (6-25); CALCIUM 9.4 mg/dL (8.4-10.2); CARBON DIOXIDE 21 mmol/L (22-29); CHLORIDE 107 mmol/L (98-107); EST GLOMERULAR FILTRATION RATE > 60 ML/MIN (60-); GLUCOSE 111 mg/dL (74-118); POTASSIUM 4.3 mmol/L (3.5-5.1); SODIUM 139 mmol/L (136-145)
[2020-02-15 23:09] LABS: AMORPHOUS SEDIMENT,URINE FEW (FEW); BACTERIA,URINE FEW /HPF; EPITHELIAL CELLS,URINE RARE /LPF; RBC,URINE >50 /HPF (0-5)
[2020-02-15] MEDS ORDERED: CIPRO500 MG PO (23:43)
[2020-02-15] MEDS ORDERED: CEFUROXIME250 MG PO (23:43)
[2020-02-16 00:04] VITALS: BP 143/73
== END 2020-02-16 00:04 | disposition home or self-care (01) ==
LOC: ER 22:30
DX: N39.0 Urinary tract infection, site not specified (principal); R31.9 Hematuria, unspecified; I81 Portal vein thrombosis; D69.6 Thrombocytopenia, unspecified; I10 Essential (primary) hypertension; E11.9 Type 2 diabetes mellitus without complications; Z87.19 Personal history of other diseases of the digestive system
CPT/HCPCS: 36415; 74176; 80053; 81001; 85025; 85610; 99284